=== PATIENT | male | born 2000 | race Caucasian/White ===

== ENCOUNTER → 2019-12-18 | Emergency (ER) | payer MEDICAID, OTHER ==
[~2019-12-18] VITALS: Ht 154.9 cm; Wt 59.0 kg
[2019-12-18 21:00] VITALS: BP 120/60
== END | disposition home or self-care (01) ==
LOC: ER 19:21
DX: S06.0X0A Concussion without loss of consciousness, initial encounter (principal); S01.311A Laceration without foreign body of right ear, initial encounter; X58.XXXA Exposure to other specified factors, initial encounter; Y93.89 Activity, other specified; Y92.89 Other specified places as the place of occurrence of the external cause; Y99.8 Other external cause status
CPT/HCPCS: 12011; 70450; 72125

== ENCOUNTER 2022-08-14 22:45 | Emergency (ER) | payer MEDICAID ==
[~2022-08-14] VITALS: Ht 180.3 cm; Wt 74.0 kg
[2022-08-15 04:34] VITALS: BP 152/68
[2022-08-15] MEDS ORDERED: cefTRIAXone SOD 1,000 MG VL IM ONE (05:00)
[2022-08-15] MEDS ORDERED: cefTRIAXone W LIDOCAINE 1 GM IM IM ONE (05:00)
[2022-08-15] MEDS ORDERED: TETANUS-DIPTH-ACEL PERTUSSIS 0.5ML SYR Tdap IM ONE (05:00)
[2022-08-15] MEDS ORDERED: IBUP800T27 PO (05:02)
[2022-08-15] MEDS ORDERED: AMOX-277 PO (05:02)
== END 2022-08-15 05:14 | disposition home or self-care (01) ==
LOC: ER 22:45
DX: S62.635A Displaced fracture of distal phalanx of left ring finger, initial encounter for closed fracture (principal); S61.217A Laceration without foreign body of left little finger without damage to nail, initial encounter; Z79.1 Long term (current) use of non-steroidal anti-inflammatories (NSAID); Z79.2 Long term (current) use of antibiotics; W54.0XXA Bitten by dog, initial encounter; Y93.89 Activity, other specified; Y92.89 Other specified places as the place of occurrence of the external cause; Y99.8 Other external cause status
CPT/HCPCS: 12001; 73130; 90471; 90715; 96372; 99284; J0696; J2001

== ENCOUNTER 2022-08-24 10:46 | Emergency (ER) | payer MEDICAID ==
[~2022-08-24] VITALS: Ht 180.3 cm; Wt 93.1 kg
[~2022-08-24 10:46] MED LIST: AMOX-277 PO; IBUP800T27 PO
[2022-08-24 11:59] VITALS: BP 118/69
== END 2022-08-24 12:36 | disposition home or self-care (01) ==
LOC: ER 10:46
DX: S61.215D Laceration without foreign body of left ring finger without damage to nail, subsequent encounter (principal); J45.909 Unspecified asthma, uncomplicated